=== PATIENT | female | born 1955 | race Caucasian/White ===

== ENCOUNTER 2025-03-25 07:18 | Day surgery (SDC) | payer MEDICARE, OTHER, SELFPAY ==
--- NOTE | 2025-03-25 07:16 | WPDANESEPPF ---
Anes - Initial Pre Proc Eval Procedure: Operation Date: 03/25/25 09:00 Proposed Procedures p Excision Lesion Palette without Closure - Gregorio Grace MD s Biopsy of Palette - Gregorio Grace MD Date/Time: 03/25/25 07:16 Surgeon: MD Nakul Pre Op Diagnosis: other chronic pain Pre Op Diagnosis: Other Lesion of Oral Mucosa Patient Data Age: 69 Gender: F Height: 1.5 m Weight: 38 kg Allergies Allergy/AdvReac Type Severity Reaction Status Date / Time No Known Allergies Allergy Verified 03/18/25 13:58 Home Medications ?Medication ?Instructions ?Recorded ?Confirmed ?Type losartan 25 mg tablet 25 mg PO DAILY 03/05/25 03/18/25 History diphenhydramine HCl 25 mg tablet 25 mg PO DAILY 03/18/25 03/18/25 History (Allergy (diphenhydramine)) Results Review: All pre-operative results and documents have been reviewed as part of the pre-operative evaluation. [facility] Social History Social History Years smoked: 30 Smoking status: Former smoker Tobacco type: cigarettes Additional smoking assessment comments: quit sometime in 2021 Alcohol intake: never Substance use: never Substance use type: does not use Living arrangements: with family Spiritual care concerns: No Anes - Eval Final PreProcedure Day of Procedure 03/25/25 07:16 Patient weight: normal Heart: regular rate and rhythm Lungs: clear to auscultation Airway: Mallampati scale class III Neurological: alert and oriented Last oral intake: >/= 8 hours ASA classification: II Emergent: no Anesthetic plan: proceed Anesthesia type and monitoring: general Results Review: All pre-operative results and documents have been reviewed as part of the pre-operative evaluation. Informed Consent: The patient's anesthetic plan and its attendant risks and benefits were discussed with the patient/family/POA. Questions were solicited and answers provided to the satisfaction of the patient/family/POA.
--- NOTE | 2025-03-25 07:28 | WPDHPUPDATE1 ---
History and Physical Update Update Date/Time: 03/25/25 07:28 History and Physical has been reviewed, including an updated exam of the patient. There are NO changes in the patient's condition. Risks, benefits, and alternatives have been discussed and questions answered. Patient agrees to proceed with procedure.
[2025-03-25 07:35] VITALS: BP 155/66; PULSE 84; RESP 18; TEMP 37.2; O2SAT 99
[2025-03-25] MEDS: LACTATED RINGERS 1,000 ML 30 ML IV CONT (07:45)
[2025-03-25] MEDS: ACETAMINOPHEN 500 MG TABLET 1000 MG PO (07:51)
[2025-03-25] MEDS: ceFAZolin 2 GM in SODIUM CHLORIDE 0.9% IV 50 ML 100 ML IVPB (09:34)
[2025-03-25] MEDS: LIDO 1%/EPINEPHRINE 1:100,000 20 ML VIAL INFILTRATE (09:59)
--- NOTE | 2025-03-25 10:02 | SUR.OPER ---
Specimen Lesion of Palette
[2025-03-25 10:06] VITALS: BP 123/50; PULSE 63; RESP 14; TEMP 36.6; O2SAT 98
--- NOTE | 2025-03-25 10:19 | SUR.PHASEI ---
DR RING AT BEDSIDE SPEAKING TO PATIENT
[2025-03-25 10:20] VITALS: BP 145/60; PULSE 120; RESP 20; O2SAT 100
--- NOTE | 2025-03-25 10:24 | WPDANESPN ---
Anes - Prog Note Post-Op Date/Time: 03/25/25 10:24 Vital Signs: Last Vital Signs Temp 98 F 03/25/25 10:06 Pulse 120 H 03/25/25 10:20 Resp 20 03/25/25 10:20 BP 145/60 H 03/25/25 10:20 Pulse Ox 100 03/25/25 10:20 O2 Del Method Simple Face Mask 03/25/25 10:20 O2 Flow Rate 6 03/25/25 10:20 Pain Score (VAS): 2 I/O: Intake & Output 03/24/25 03/25/25 03/25/25 23:59 07:59 15:59 Intake Total 50 Balance 50 Patient Feedback: Patient satisfied with anesthetic care.
[2025-03-25 10:30] VITALS: BP 125/61; PULSE 116; RESP 22; O2SAT 100
[2025-03-25 10:32] VITALS: BP 133/65; PULSE 113; RESP 16; O2SAT 97
[2025-03-25 10:52] VITALS: BP 121/59; PULSE 84; RESP 16; O2SAT 97
--- NOTE | 2025-03-25 12:13 | W.PM.PROC2 ---
Procedure Note - Detailed Date of Procedure 03/25/25 Pre-op Diagnosis Other Lesion of Oral Mucosa hard palate lesion Post-op Diagnosis Same Procedure Performed Next excisional biopsy hard palate Surgeon Gregorio Grace MD Anesthesia General Indications See above Findings Abnormal pigmented lesion with erythematous border minimal bleeding if any Description of Procedure Patient identified consent verified the preoperative holding area. Patient brought operating. Time-out performed. General anesthesia induced endotracheal tube secured the patient's airway. Patient prepped draped position procedure confirmed 2nd time-out performed. McIvor mouth gag inserted into the airway exposing the palatal lesion measuring several mm across. A 4 mm punch biopsy was utilized to outline the lesion in totality. Needle-tip Bovie setting of 10 utilized to excise the lesion bleeding was taken completely. Bleeders controlled with the gentle application of bipolar electrocautery at a setting of 5 in 10. Blood loss much less than 1 cc. I performed all dictated portions of procedure. McIvor mouth gag removed. Specimen sent for pathologic analysis. Care the patient back to Anesthesiology patient to PACU. No complications. Estimated Blood Loss 1 Drains No Packing No Pathology Yes Complications No immediate complications Condition Stable Disposition PACU [facility] Billing Surgery - Charge Forward: Surgery Billing
== END 2025-03-25 11:04 | disposition home or self-care (01) ==
PROVIDERS: PCP Family Medicine; Visit Provider Otolaryngology
PROC: (CPT 40810; principal; 2025-03-25 09:00)
PROC: (CPT 42104; 2025-03-25 09:00)
DX: K13.79 Other lesions of oral mucosa (principal)
CPT/HCPCS: 42104

== ENCOUNTER 2025-03-25 07:45 | Outpatient (NON) | payer MEDICARE, OTHER, SELFPAY ==
--- NOTE | 2025-03-25 | S_PTH ---
PATIENT: Roseanne Owens LOC: ANHLAB #:[id number] AGE/SX: 69/F ROOM: RE03/25/[address]: Gregorio Grace MD : 1955 BED: DIS: 03/25/2025 SPEC #: [id number] RECD: 03/26/25 08:17 STATUS: DONNA RECirilo #: [id number] JORDANA: 03/25/25 00:[address]: Gregorio Grace DEPT: [facility] Surgical RECD BY: Linda Louie ENTERED: 03/26/25 08:18 SP TYPE: Surgical OTHR DR: Ludwin MccurdyMD Tissues: A - Skin Procedures: Hematoxylin and Eosin Stain Gross and Microscopic Level 4
--- OUTSIDE RECORDS SUMMARY | 2025-03-26 08:03 | XMS_ITS | Clinical Summary ---
Author Organization [facility] Address [facility] [place] [address] Care Team Providers Care Production Control Scheduler Name Role Phone Unavailable Primary Care Provider Unavailabl e Social History Tobacco Use Types Packs/Day Years Used Date Smoking Tobacco: Never Assessed Comments Unknown Sex and Gender Information Value Date Recorded Sex Assigned at Not on file Legal Sex Female 5:17 PM CDT Gender Identity Not on file Sexual Orientation Not on file Plan of Treatment Health Maintenance Due Date Last Done Comments Colorectal Cancer Screening Colonoscopy (10 Years) 1954 Hepatitis C 1972 DTaP, Tdap and Td Vaccines ( 1 - Tdap) 1973 Mammogram Screening 1994 Pneumococcal Vaccine: 50+ Ye ars (1 of 1 - PCV) 2004 Zoster Vaccines (1 of 2) 2004 Dexa Scan (General) 2019 COVID-19 Vaccine ( - 2023-2 5 season) 2025 RSV Immunization or 60+ Years (1 - 1-dose 75+ series) 2029 Meningococcal B Vaccine Aged Out No l onger eligible based on patient's age to complete this topic Meningococcal Vaccine Aged Out No geraldo donovan eligible based on patient's age to complete this topic RSV Immunizations Under 20 Months Aged Out No longer eligible based on patient's age to complete this topic
--- OUTSIDE RECORDS SUMMARY | 2025-03-26 08:04 | XMS_ITS | Clinical Summary ---
Author Organization [facility] Address [address] [place] [address] Care Team Providers Care Mud Mill Tender Name Role Phone Ludwin Mccurdy MD Primary Care Provider + Shelly Landrum Unavailable [phone] Allergies No known active allergies Medications acetaminophen ER (TYLENOL) 650 mg 8 hr tablet Take 2 tablets (1,300 mg total) by mouth 2 (two) times a day as needed Active HYDROcodone-sudarshan taminophen (NORCO) 5-325 mg per tabletIndicatio ns:Pain Take 1-2 tablets every 4-6 hours as needed for pain 30 tablet 04/10/2023 Active Active Problems Problem Noted Date Diagnosed Date Nontraumatic complete tear of left rotator cuff 03/15/2022 Overview (03/15/2022): Added automatically from request for surgery [id number] Nontraumatic complete tear of right rotator cuff 08/10/2021 Overview (08/10/2021): Added automatically from request for surgery [id number] Arthritis of right acromioclavicular joint 08/10 Overview (08/10/2021): Added automatically from request for surgery [id number] Left arm pain 11/27/2020 Rotator cuff impingement syndrome, left 05/14/20 21 Rotator cuff impingement syndrome, right 021 History of repair of left rotator cuff 1 History of repair of right rotator cuff 11/28/19 21 Surgical History Surgery Date Site/Laterality Comments BREAST SURGERY 1969's, 1979' Bilateral benign multiple aspirations and bilat lumpectomies benign HYSTERECTOMY 1979' SECTION 1976, 1977 x 2 ROTATOR CUFF REPAIR 1990's Right ROTATOR CUFF REPAIR 07/17/2001 - 07/16/2002 Left Medical History Medical History Date Comments Pneumonia 2016 Scoliosis Dental crowns present several, n one directly in front of mouth Positive TB test 1969's or s, took medication for 1 year, has had CXR since, have been negative History of migraine Allergic rhinitis Wears glasses reading Arthritis Family History Medical History Relation Name Comments Heart disease Mother Relation Name Status Comments Mother Social History Tobacco Use Types Packs/Day Years Used Date Smoking Tobacco: Former Cigarettes 0.5 46.1 0 07/17/1975 - 08/2021 Passive Smoke Exposure: Past Smokeless Tobacco: Never Tobacco Cessation:Counseling Given: Not Answered AUDIT-C Answer Date Recorded Q1: How often do you have a drink containing alc ohol? Never 03/24/2022 Average Number of Drinks Not on file 022 Frequency of Binge Drinking Not on file 02/2022 Comments No Sex and Gender Information Value Date Recorded Sex Assigned at Not on file Legal Sex Female 8:22 PM PULP DRIER FIRER Gender Identity Female 08/03/2021 7:40 AM PULP DRIER FIRER Sexual Orientation Straight 08/03/2021 7: 40 AM PULP DRIER FIRER Obstetrics History Last Filed Vital Signs Vital Sign Reading Time Taken Comments Blood Pressure 132/70 04/05/2022 1:13 PM CDT Pulse 55 04/05/2022 1:13 PM CDT Temperature 36.6 C (97.8 F) 04/05/2022 12:45 PM CDT Respiratory Rate 20 04/05/2022 1:13 PM CDT Oxygen Saturation 96% 04/05/2022 1:13 PM CDT Inhaled Oxygen Concentration - - Weight 38.6 kg (85 lb) 06/14/2023 11:33 AM PULP DRIER FIRER Height 149.9 cm (4' 11) 06/14/2023 11:33 AM PULP DRIER FIRER Body Mass Index 17.17 06/14/2023 11:33 AM PULP DRIER FIRER Plan of Treatment Health Maintenance Due Date Last Done Comments Colon Cancer Screening-Colonoscopy 1955 Depression Screening 1955 Hepatitis C Screening 1955 Osteoporosis Screening-Bone Density Scan 1955 DTaP/Tdap/Td Vaccine (1 - Tdap) 1965 Hepatitis B Screening 1972 Pneumococcal vaccine 65+ (1 of 1 - PCV) 2004 Zoster Vaccine (1 of 2) 2004 Well Visit 65+ 2019 Breast Cancer Screening-Mammogram 08/29/2019 019 Fall Risk Assessment 04/05/2023 04/05/2022 Covid-19 Vaccine ( season) 2024 05/26/2021, 11/09/2020, 10/12/2020 Influenza Vaccine (#1) 2025 Medical Devices Implanted Type Area Automotive Assembler Device Identifier Shelf Expiration Date Model / Serial / Lot [employer] [id number] Speedbridge Swivelock 4.75mm 19.1mm Cannulated Preload System - [id number] Implanted:Qty: 1 on 08/31/2021 by Johnny Fu MD at [facility] [employer] [id number] 04/15/2025 [id number] S-4 / / [id number] [employer] [id number] Corkscrew Ii Fiberwire 5.5mm 15mm 2 Full Thread [place] Suture - [id number] Implanted:Qty: 1 on 08/31/2021 by Johnny Fu MD at [facility] [employer] [id number] / / [id number] [employer] Speedbridge Swivelock 4.75mm 19.1mm Cannulated Preload System [id number] - [id number] Implanted:Qty: 1 on 04/05/2022 by Johnny Fu MD at [facility] Left: Humerus [employer] [id number] 12/14/2025 [id number] S-4 / / [id number] Procedures Procedure Name Priority Date/Time Associated Diagnosis Comments SCREENING MAMMOGRAM 2D BILATERAL Routine 08/29/2018 7:56 AM PULP DRIER FIRER from Last 3 Months or Most Recently Relevant to Health Maintenance Results * Screening Mammogram 2D Bilateral (08/29/2018 7:56 AM PULP DRIER FIRER) Anatomical Region Laterality Modality Breast Bilateral Mammography 08/29/2018 7:56 AM PULP DRIER FIRER Impressions 08/29/2018 9:15 AM PULP DRIER FIRER BI-RAD 2 BENIGN There is no mammographic evidence of malignancy. A 1 year screening mammogram is recommended. The patient has been or will be contacted. The patient will be entered into a reminder system with a target due date of 1 year for her next screening exam. Electronically signed by: Lavelle mei/rickey:08/29/2018 09:14:11 Outpatient Coordinator: Emilie VYAS (R)(M), [facility] letter sent: Normal Exam Reading location: [facility] BI-RADS: 2 Benign [EOD] Narrative 08/29/2018 9:15 AM PULP DRIER FIRER - MG BILATERAL DIGITAL SCREENING MAMMOGRAM WITH MEDIOLATERAL OBLIQUE CRANIOCAUDAL: 08/29/2018 The study was acquired using full field digital technology and interpreted from soft copy. CLINICAL: Routine mammogram. Denies any problems today. No personal history of breast cancer. No family history of breast cancer. COMPARISONS: Comparison is made to exams dated: 11/03/2011 mammogram and 10/11/2010 [facility]. BREAST TISSUE: The tissue of both breasts is heterogeneously dense, which may obscure small masses. FINDINGS: There are benign scattered calcifications in both breasts. No significant masses, calcifications, or other findings are seen in either breast. There has been no significant interval change. Procedure Note Provider, MD Rae - 11/30/2020 - MG BILATERAL DIGITAL SCREENING MAMMOGRAM WITH MEDIOLATERAL OBLIQUECRANIOCAUDAL: 08/29/2018 The study was acquired using full field digital technology and interpretedfrom soft copy. CLINICAL: Routine mammogram. Denies any problems today. No personalhistory of breast cancer. No family history of breast cancer. COMPARISONS: Comparison is made to exams dated: 11/03/2011 mammogram and 10/11/2010 [facility]. BREAST TISSUE: The tissue of both breasts is heterogeneously dense, whichmay obscure small masses. FINDINGS: There are benign scattered calcifications in both breasts. No significant masses, calcifications, or other findings are seen ineither breast. There has been no significant interval change. IMPRESSION: BI-RAD 2 BENIGN There is no mammographic evidence of malignancy. A 1 year screeningmammogram is recommended. The patient has been or will be contacted. The patient will be entered into a reminder system with a target due dateof 1 year for her next screening exam. Electronically signed by: Lavelle Billy M.D. ab/penjacinto:08/29/2018 09:14:11 Outpatient Coordinator: Emilie VYAS (Darcy)(Brigitte), [facility] letter sent: Normal Exam Reading location: [facility] BI-RADS: 2 Benign [EOD] Ludwin Mccurdy MD IMG MAMMO PROCEDURES Fin al Result from Last 3 Months or Most Recently Relevant to Health Maintenance Insurance MEDICARE [facility] [place] MEDICARE [employer] [place] Member Subscriber Plan / Payer (Ef fective 2019-) Name:Roseanne Owens Relation to Subscriber:Self Name:Roseanne Owens Payer ID:[id number] Group ID:Not on file Type:[facility] Address: [facility] [address] [place], [place] MEDICARE [employer] [place] Member Subscriber Plan / Payer (Ef fective 2019-Present) Name:Roseanne Owens Relation to Subscriber:Self Name:Roseanne Owens Payer ID:[id number] Group ID:Not on file Type:COMM[employer]CIAL Address: [place] [address] Care Teams Mud Mill Tender Relationship Specialty Start Date End Date Ludwin Mccurdy MD PCP - General Family Medicine 10/12/20 Shelly Landrum PA Physician Stock Repairer Orthopedic Surgery 04/05/22
== END 2025-03-25 07:46 | disposition home or self-care (01) ==
LOC: ANHLAB 03-26 07:48
PROVIDERS: PCP Family Medicine; Visit Provider Otolaryngology
DX: K13.79 Other lesions of oral mucosa (principal)
CPT/HCPCS: 88305